=== PATIENT | male | born 1980 | race Caucasian/White ===

== ENCOUNTER → 2022-12-05 07:09 | Outpatient (CLI) | payer OTHER, SELFPAY ==
--- NOTE | 2022-12-05 | DI.MRI.S_ITS ---
PROCEDURE: MR BRAIN (IAC) WWO CON INDICATIONS: Sensorineural hearing loss, unilateral, left ear, TECHNIQUE: Noncontrast sagittal T1 spin echo, axial FLAIR, axial gradient echo, axial diffusion and ADC through the brain. Axial thin-slice 3D CISS, coronal TruFISP, axial T1 spin echo with fat saturation through the internal auditory canals. After the administration of contrast, thin slice axial and coronal T1 spin echo with fat saturation through the internal auditory canals, and axial and coronal and sagittal T1 spin echo with fat saturation through the brain. COMPARISON: None. FINDINGS: Image quality: Excellent. Cerebellopontine angles: No cerebellopontine angle masses. Inner ear structures appear normally formed. No suspicious enhancement in the internal auditory canal or along the course of the 7th cranial nerve. CSF spaces: Ventricles are normal in size and shape. No extra-axial fluid collections. Basal cisterns are patent. Brain: No intracranial bleeds or mass effects. Hines-white matter interface is intact. No abnormal intracranial enhancement. Diffusion weighted images demonstrate no acute ischemic insults. Brainstem appears normal. Normal intravascular flow voids are present. Skull and face: Calvarial marrow signal is normal. Orbits appear normal. Sinuses: Moderate bilateral ethmoid and maxillary sinus mucosal thickening. Mastoids are clear. IMPRESSION: 1. Negative evaluation of the internal auditory canals. 2. Sinus disease. 3. No acute process. No recent infarct. Dictated by: Natacha Grodillo M.D. on 12/05/2022 at 8:37 Approved by: Natacha Gordillo M.D. on 12/05/2022 at 8:39
== END ==
PROVIDERS: Referring Provider Otolaryngology; Visit Provider Otolaryngology
DX: H90.42 Sensorineural hearing loss, unilateral, left ear, with unrestricted hearing on the contralateral side (principal); J32.8 Other chronic sinusitis; J30.2 Other seasonal allergic rhinitis; R09.81 Nasal congestion
CPT/HCPCS: 70553; A9579